=== PATIENT | female | born 1995 | race Caucasian/White ===

== ENCOUNTER 2022-09-25 12:08 | Emergency (ER) | payer SELFPAY ==
[2022-09-25] MEDS ORDERED: Naproxen 500 MG TAB ONE (13:27)
== END 2022-09-25 13:44 | disposition home or self-care (01) ==
LOC: MADERS 12:08
DX: J30.9 Allergic rhinitis, unspecified (principal); J02.8 Acute pharyngitis due to other specified organisms; F17.210 Nicotine dependence, cigarettes, uncomplicated
CPT/HCPCS: 87081; 87430; 87804; 96372; J1040

== ENCOUNTER 2023-02-01 19:31 | Emergency (ER) | payer SELFPAY ==
[2023-02-01] MEDS ORDERED: predniSONE 20 MG TAB ONE (20:03)
[2023-02-01] MEDS ORDERED: Amoxicillin/Potassium Clav 875 MG TAB ONE (20:03)
== END 2023-02-01 20:09 | disposition home or self-care (01) ==
LOC: MADERS 19:31
DX: J01.90 Acute sinusitis, unspecified (principal); H92.03 Otalgia, bilateral; F17.210 Nicotine dependence, cigarettes, uncomplicated; Z79.899 Other long term (current) drug therapy
CPT/HCPCS: 99283; J7512

== ENCOUNTER 2024-01-16 04:57 | Emergency (ER) | payer SELFPAY ==
[2024-01-16 05:22] LABS: Bilirubin Small (Negative); Blood, Urine Trace (Negative); Clarity Clear (Clear); Glucose, Urine (Dipstick) Negative (Negative); Ketone, Urine Trace mg/dL (Negative); Leukocyte Negative (Negative); Nitrite Negative (Negative); Protein, Urine (Dipstick) Negative (Neg-Trace)
[2024-01-16 05:24] LABS: Pregnancy Test - Urine (BHCG) Negative (Negative); Pregu Control Background? CLEAR/WHITE (CLR/WHITE); Pregu Control Bar Appear? YES (CONTROL BAR); Specific Gravity 1.031 (1.002-1.036); Specific Gravity, Urine 1.031 (1.002-1.036)
[2024-01-16 05:25] LABS: Bacteria/HPF Rare-Few HPF (None Seen); CAUTI Indications for Culture Pelvic or flank pain; RBC/HPF 0-3 HPF (0-3); Urine Culture Reflex No No; WBC/HPF 0-3 HPF (0-3)
[2024-01-16] MEDS ORDERED: Ondansetron PF 4 MG/2 ML Vial ONE (05:31)
[2024-01-16] MEDS ORDERED: Ketorolac Tromethamine 30 MG (1 mL) VIAL ONE (05:32)
[2024-01-16 05:33] LABS: #Basophils 0.1 thou/uL (0.0-0.2); #Lymphocytes 1.4 thou/uL (1.20-3.40); #Monocytes 0.5 thou/uL (0.11-0.59); #Neutrophils 6.9 thou/uL (1.40-6.50); %Basophils 0.9 % (0.0-1.0); %Eosinophils 0.5 % (0.0-10.0); %Lymphocytes 15.3 % (21.0-51.0); %Monocytes 5.8 % (0.0-10.0); %Neutrophils 77.5 % (42.0-75.0); Hematocrit 38.1 % (36.0-47.0); Mean Corpuscular Volume 91.1 fl (78.0-98.0); Platelet Count 212 10x3/uL (130-400); RBC Distribution Width 12.1 % (11.5-14.5); Red Blood Cell (RBC) Count 4.18 mill/uL (4.20-5.40); White Blood Cell (WBC) Count 8.9 10x3/uL (4.8-10.8)
[2024-01-16] MEDS ORDERED: Sodium Chloride 0.9% 1,000 ML ONE (05:36)
[2024-01-16 05:50] LABS: ALT (SGPT) 23 U/L (8-55); AST (SGOT) 25 U/L (5-34); Alkaline Phosphatase 61 U/L (40-110); Anion Gap 14 mmol/L (10-20); BUN (Urea Nitrogen) 14 mg/dL (7.0-18.7); Bilirubin, Total 0.4 mg/dL (0.2-1.2); Calc. Creatinine Clearance 0 mL/min (70-130); Calcium 9.1 mg/dL (7.8-10.44); Carbon Dioxide 22 mmol/L (22-29); Chloride 106 mmol/L (98-107); Estimated GFR 72; Globulin 2.6 g/dL (2.4-3.5); Glucose 106 mg/dL (70-105); Potassium 4.1 mmol/L (3.5-5.1); Protein, Total 6.6 g/dL (6.0-8.3); Sodium 138 mmol/L (136-145)
[2024-01-16] MEDS ORDERED: Tamsulosin HCl 0.4 MG CAP ONE (07:26)
[2024-01-16] MEDS ORDERED: Morphine 4 MG/ML VIAL ONE (07:26)
[2024-01-16] MEDS ORDERED: fentaNYL 50 mcg/mL 1 mL Vial ONE (08:37)
== END 2024-01-16 10:50 | disposition short-term general hospital (02) ==
LOC: MADERS 04:57
DX: N13.2 Hydronephrosis with renal and ureteral calculous obstruction (principal); F17.210 Nicotine dependence, cigarettes, uncomplicated
CPT/HCPCS: 74176; 80053; 81001; 81025; 85025; 96374; 96375; J1885; J2270; J2405; J3010; J7050

== ENCOUNTER 2025-08-14 09:30 | Emergency (ER) | payer SELFPAY ==
[2025-08-14] MEDS ORDERED: predniSONE 20 MG TAB ONE (10:10)
== END 2025-08-14 10:15 | disposition home or self-care (01) ==
LOC: MADERS 09:30
DX: J01.10 Acute frontal sinusitis, unspecified (principal); F17.210 Nicotine dependence, cigarettes, uncomplicated
CPT/HCPCS: 99283; J7512

== ENCOUNTER 2025-09-27 09:43 | Emergency (ER) | payer SELFPAY ==
[2025-09-27] MEDS ORDERED: Mupirocin 1 GM TUBE ONE (10:12)
== END 2025-09-27 10:18 | disposition home or self-care (01) ==
LOC: MADERS 09:43
DX: L08.9 Local infection of the skin and subcutaneous tissue, unspecified (principal); B95.8 Unspecified staphylococcus as the cause of diseases classified elsewhere; J30.9 Allergic rhinitis, unspecified; F17.210 Nicotine dependence, cigarettes, uncomplicated; Z79.899 Other long term (current) drug therapy
CPT/HCPCS: 99283

== ENCOUNTER 2025-10-04 07:41 | Emergency (ER) | payer SELFPAY | END 2025-10-04 08:27 | disposition home or self-care (01) | LOC: MADERS 07:41 | DX: J01.00 Acute maxillary sinusitis, unspecified (principal); J34.89 Other specified disorders of nose and nasal sinuses; F17.210 Nicotine dependence, cigarettes, uncomplicated | CPT/HCPCS: 87070; 87205; 99283 ==